=== PATIENT | female | born 1985 | race Two or more races ===

== ENCOUNTER 2019-06-10 07:28 | Outpatient (CLI) | payer OTHER ==
[~2019-06-10] VITALS: Ht 172.7 cm; Wt 116.6 kg
[2019-06-10] MEDS ORDERED: CEFUROXIME500 MG PO (09:24)
[2019-06-10] MEDS ORDERED: RHINOCORT ALL8.43 ML NASAL (09:25)
== END 2019-06-10 09:40 | disposition home or self-care (01) ==
LOC: OFIC 805 07:28
DX: J32.8 Other chronic sinusitis (principal); J34.3 Hypertrophy of nasal turbinates

== ENCOUNTER 2019-07-10 16:12 | Inpatient (IN) | payer OTHER ==
[~2019-07-10] VITALS: Ht 172.7 cm; Wt 121.1 kg
[~2019-07-10 16:12] MED LIST: CEFUROXIME500 MG PO; RHINOCORT ALL8.43 ML NASAL
[2019-08-17] MEDS ORDERED: ATABEX DHA 200200 MG PO (09:07)
[2019-08-17] MEDS ORDERED: PRENATAL + DHA1 EAC1 PO (09:07)
== END 2019-08-20 12:30 | disposition home or self-care (01) | DRG 787 ==
LOC: SURG 08-08 14:15 → LDR 08-12 14:15 → OB/GYN 08-17 06:30 → LDR 08-17 06:30 → OB/GYN 08-17 18:56
PROVIDERS: ADMIT Obstetrics & Gynecology Maternal & Fetal Medicine
PROC: 3E033VJ Introduction of Other Hormone into Peripheral Vein, Percutaneous Approach (ICD-10-PCS; 2019-08-17)
PROC: 4A1HXCZ Monitoring of Products of Conception, Cardiac Rate, External Approach (ICD-10-PCS; 2019-08-17)
PROC: 10D00Z1 Extraction of Products of Conception, Low, Open Approach (ICD-10-PCS; principal; 2019-08-17 17:15)
PROC: 30233N1 Transfusion of Nonautologous Red Blood Cells into Peripheral Vein, Percutaneous Approach (ICD-10-PCS; 2019-08-19)
DX: O62.0 Primary inadequate contractions (principal); D62 Acute posthemorrhagic anemia; Z3A.40 40 weeks gestation of pregnancy; Z37.0 Single live birth; O99.03 Anemia complicating the puerperium

== ENCOUNTER 2019-08-06 13:38 | Outpatient (CLI) | payer OTHER | END 2019-08-06 14:36 | disposition home or self-care (01) | LOC: NST 13:38 | DX: Z34.83 Encounter for supervision of other normal pregnancy, third trimester (principal) ==

== ENCOUNTER 2019-08-14 09:25 | Outpatient (CLI) | payer OTHER | END 2019-08-14 10:09 | disposition home or self-care (01) | LOC: NST 09:25 | DX: Z34.83 Encounter for supervision of other normal pregnancy, third trimester (principal) ==

== ENCOUNTER 2021-06-02 11:07 | Outpatient (CLI) | payer OTHER ==
[~2021-06-02 11:07] MED LIST changes: +ATABEX DHA 200200 MG PO; +PRENATAL + DHA1 EAC1 PO
== END 2021-06-02 11:34 | disposition home or self-care (01) ==
LOC: NST 11:07
PROVIDERS: ATTEND Obstetrics & Gynecology
DX: Z34.82 Encounter for supervision of other normal pregnancy, second trimester (principal)

== ENCOUNTER 2021-07-27 10:36 | Outpatient (CLI) | payer OTHER | END 2021-07-27 12:03 | disposition home or self-care (01) | LOC: NST 10:36 | PROVIDERS: ATTEND Obstetrics & Gynecology Maternal & Fetal Medicine | DX: Z34.83 Encounter for supervision of other normal pregnancy, third trimester (principal) ==

== ENCOUNTER 2021-08-16 13:29 | Outpatient (CLI) | payer OTHER | END 2021-08-16 13:59 | disposition home or self-care (01) | LOC: NST 13:29 | PROVIDERS: ATTEND Obstetrics & Gynecology Maternal & Fetal Medicine | DX: Z34.83 Encounter for supervision of other normal pregnancy, third trimester (principal) ==

== ENCOUNTER 2021-08-26 04:19 | Inpatient (IN) | payer OTHER ==
[~2021-08-26] VITALS: Ht 170.2 cm; Wt 2.7 kg
[2021-08-29] MEDS ORDERED: OXYC1TAB9 PO ×2 (07:31)
[2021-08-29] MEDS ORDERED: KETO10TA2 PO ×2 (07:31)
== END 2021-08-29 11:01 | disposition home or self-care (01) | DRG 786 ==
LOC: OB/GYN 04:19 → LDR 04:19 → OB/GYN 12:38
PROVIDERS: ADMIT Obstetrics & Gynecology Maternal & Fetal Medicine; ATTEND Obstetrics & Gynecology Maternal & Fetal Medicine
PROC: 4A1HXCZ Monitoring of Products of Conception, Cardiac Rate, External Approach (ICD-10-PCS; 2021-08-26)
PROC: 10D00Z1 Extraction of Products of Conception, Low, Open Approach (ICD-10-PCS; principal; 2021-08-26 08:00)
DX: O34.211 Maternal care for low transverse scar from previous cesarean delivery (principal); O60.14X0 Preterm labor third trimester with preterm delivery third trimester, not applicable or unspecified; O41.1430 Placentitis, third trimester, not applicable or unspecified; Z3A.36 36 weeks gestation of pregnancy; Z37.0 Single live birth